=== PATIENT | female | born 1945 | race Caucasian/White ===

== ENCOUNTER 2016-06-26 04:00 | Inpatient (IN) | payer OTHER, BC ==
[~2016-06-26] VITALS: Ht 154.9 cm; Wt 117.1 kg
[2016-06-26 04:36] LABS: CREATININE 0.8 mg/dL (0.6-1.3)
[2016-06-26 05:34] LABS: EOSINOPHIL (%) 2.2 % (0-5); EOSINOPHIL COUNT 0.2 K/uL (0-0.3); HEMATOCRIT 44.1 % (36.0-46.0); IMMATURE GRANULOCYTE (%) 0.1 % (0.0-0.7); IMMATURE GRANULOCYTE COUNT 0.1 K/uL; LYMPHOCYTE COUNT 1.3 K/uL (1.0-2.8); MCH 29.7 PG (29.0-34.0); MCHC 32.2 G/DL (30.0-36.0); MCV 92.3 FL (83-99); MEAN PLAT.VOLUME 12.2 uM^3 (9.5-12.4); MONOCYTE (%) 6.6 % (3-12); MONOCYTE COUNT 0.5 K/uL (0-0.8); NEUTROPHIL (%) 75.3 % (45-76); NEUTROPHIL COUNT 6.2 K/uL (1.8-6.4); PLATELET COUNT 201 K/uL (156-360); RBC DIS.WIDTH-SD 49.3 % (39-53); RED BLOOD COUNT 4.78 M/uL (3.80-5.20); WHITE BLOOD COUNT 8.2 K/uL (4.1-10.2)
[2016-06-26 05:38] LABS: PROTHROMBIN TIME 10.1 (9.2-11.2); PTT 25.2 (25-32)
[2016-06-26 05:42] LABS: CHLORIDE 108 mEq/L (99-109); POTASSIUM 3.7 mEq/L (3.7-5.4); SODIUM 142 mEq/L (136-147)
[2016-06-26 05:44] LABS: GLUCOSE 157 mg/dL (70-99)
[2016-06-26 05:45] LABS: ANION GAP 13 MEQ/L (2-14)
[2016-06-26 05:48] LABS: GFR ESTIMATE (CALCULATED) 58 mL/min/
[2016-06-26 05:49] LABS: UREA NITROGEN (BUN) 21 mg/dL (9-23)
[2016-06-26 05:53] LABS: TROP-I INTERPRETATION NEGATIVE; TROPONIN-I 0.01 ng/mL (0.0-0.30)
[2016-06-26 08:13] LABS: ADD MIUA? NO; BILIRUBIN NEGATIVE; BLOOD NEGATIVE; COLOR YELLOW ((YELLOW)); GLUCOSE (STRIP) NEGATIVE; KETONES NEGATIVE; LEUKOCYTES NEGATIVE; NITRITE NEGATIVE; PH, URINE 6.5 (5-8); PROTEIN (STRIP) NEGATIVE; UROBILINOGEN 0.2 MG/DL (0.2-1.0)
[2016-06-26 08:29] LABS: SPECIFIC GRAVITY 1.056 (1.000-1.030)
[2016-06-26 10:55] VITALS: BP 205/88
[2016-06-26] MEDS ORDERED: FUROSEMIDE20 MG PO (12:55)
[2016-06-26] MEDS ORDERED: VENLAFAXINE HC150 M1 PO (12:57)
[2016-06-26] MEDS ORDERED: OMEPRAZOLE20 MG PO (12:58)
[2016-06-26] MEDS ORDERED: AMLOD-VALSA-HC1 EAC1 PO (12:58)
[2016-06-26] MEDS ORDERED: ATORVASTATIN CA40 MG PO (12:59)
[2016-06-26] MEDS ORDERED: DIOVAN160 MG PO (13:00)
[2016-06-26] MEDS ORDERED: METFORMIN HCL500 M4 PO (13:00)
[2016-06-26] MEDS ORDERED: METOPROLOL TAR100 MG PO (13:01)
[2016-06-26 15:25] LABS: HDL CHOLESTEROL 47 MG/DL (Desirable>=50); LDL CHOLESTEROL 131 mg/dL (Desirable<100); NON-HDL CHOLESTEROL 161 mg/dL (Desirable<160); TOTAL CHOLESTEROL 208 mg/dL (Desirable<200); TRIGLYCERIDES 150 MG/DL (Normal: <150)
[2016-06-26 15:29] LABS: TROP-I INTERPRETATION NEGATIVE; TROPONIN-I 0.03 ng/mL (0.0-0.30)
[2016-06-26 15:44] LABS: Estimated Average Glucose 143 mg/dL (70-123); HEMOGLOBIN A1c (GLYCOHEMOGLOB) 6.6 % HGB (Below 5.7)
[2016-06-26 16:00] VITALS: BP 123/60; BP 198/92
[2016-06-26 19:31] VITALS: BP 184/108
[2016-06-26 23:30] VITALS: BP 155/82
[2016-06-27 00:06] VITALS: BP 108/66
[2016-06-27 03:17] VITALS: BP 139/80
[2016-06-27 07:23] LABS: ANION GAP 9 MEQ/L (2-14); CHLORIDE 105 MEQ/L (99-109); GFR ESTIMATE (CALCULATED) > 59 mL/min/; GLUCOSE 127 mg/dL (70-99); POTASSIUM 4.2 MEQ/L (3.7-5.4); SAMPLE HEMOLYSIS CHECK 0; SAMPLE ICTERIC CHECK 0; SAMPLE LIPEMIA CHECK 0; SODIUM 138 MEQ/L (136-147); UREA NITROGEN (BUN) 15 mg/dL (9-23)
[2016-06-27 07:27] VITALS: BP 164/79
[2016-06-27 10:58] VITALS: BP 167/71
[2016-06-27] MEDS ORDERED: HYDROCHLOROTH12.5 M3 PO (12:41)
[2016-06-27] MEDS ORDERED: LO-DOSE ASPIRIN81 M2 PO (12:42)
[2016-06-27] MEDS ORDERED: K-DUR10 MEQ PO (12:47)
== END 2016-06-27 13:48 | disposition home or self-care (01) | DRG 69 ==
LOC: EME → EDBD 04:00 → EDSEX 04:00 → EDOF 07:51 → 5SOUTH 10:39
PROVIDERS: Emergency Medicine; Internal Medicine
DX: G45.9 Transient cerebral ischemic attack, unspecified (principal); G81.94 Hemiplegia, unspecified affecting left nondominant side; Z68.42 Body mass index [BMI] 45.0-49.9, adult; R47.81 Slurred speech; R29.810 Facial weakness; E87.6 Hypokalemia; I10 Essential (primary) hypertension; E11.9 Type 2 diabetes mellitus without complications; E78.5 Hyperlipidemia, unspecified; E66.3 Overweight; Z91.14 Patient's other noncompliance with medication regimen; Z85.3 Personal history of malignant neoplasm of breast; Z87.891 Personal history of nicotine dependence
CPT/HCPCS: 70450; 70496; 70498; 70551; 80047; 80048; 80061; 81003; 82948; 83036; 83605; 84484; 85025; 85610; 85730; 86850; 86900; 86901; 92610 GN; 93005; 93306; 99281; 99285; J0360; J1650; J1815; J3480; S0028

== ENCOUNTER 2017-11-23 09:19 | Day surgery (SDC) | payer OTHER, BC ==
[~2017-11-23] VITALS: Ht 154.9 cm; Wt 115.3 kg
[~2017-11-23 09:19] MED LIST: AMLOD-VALSA-HC1 EAC1 PO; ASPIR 8181 M1 PO; ATORVASTATIN CA40 MG PO; DIOVAN160 MG PO; FUROSEMIDE20 MG PO; GLUCOPHAGE1000 MG PO; HYDROCHLOROTH12.5 M3 PO; K-DUR10 MEQ PO; LO-DOSE ASPIRIN81 M2 PO; METFORMIN HCL500 M4 PO; METOPROLOL TAR100 MG PO; MYRBETRIQ50 MG PO; NORVASC10 MG PO; OMEPRAZOLE20 MG PO; VENLAFAXINE HC150 M1 PO; VICTOZA 2-0.6 MG/0.1 SC
[2017-11-23 09:49] VITALS: BP 174/72
[2017-11-23 13:15] VITALS: BP 186/81
[2017-11-23 14:15] VITALS: BP 165/71
== END 2017-11-23 14:20 | disposition home or self-care (01) ==
LOC: SDC 09:19
PROVIDERS: Obstetrics & Gynecology Gynecology
DX: N95.0 Postmenopausal bleeding (principal); N84.0 Polyp of corpus uteri; R93.8 Abnormal findings on diagnostic imaging of other specified body structures; Z85.3 Personal history of malignant neoplasm of breast; E11.9 Type 2 diabetes mellitus without complications; E78.5 Hyperlipidemia, unspecified; I10 Essential (primary) hypertension; E66.01 Morbid (severe) obesity due to excess calories; Z80.3 Family history of malignant neoplasm of breast; Z87.891 Personal history of nicotine dependence
CPT/HCPCS: 82948; 88305; J0690; J1100; J2405; J3010